=== PATIENT | female | born 1980 | race Caucasian/White ===

== ENCOUNTER 2023-01-10 17:40 | Emergency (ER) | payer BC ==
[~2023-01-10] VITALS: Ht 170.2 cm; Wt 87.1 kg
[2023-01-10 17:50] VITALS: BP_SYST 144; PULSE 83; RESP 19; TEMP 97.5; O2SAT 98
[2023-01-10 21:04] VITALS: BP_SYST 136; PULSE 68; RESP 18; TEMP 97.5; O2SAT 98
== END 2023-01-10 21:04 | disposition home or self-care (01) ==
LOC: SED 17:40
DX: I10 Essential (primary) hypertension (principal); R51.9 Headache, unspecified; R42 Dizziness and giddiness; Z86.16 Personal history of COVID-19; Z79.899 Other long term (current) drug therapy
CPT/HCPCS: 93005; 99283